=== PATIENT | female | born 1985 | race Caucasian/White ===

== ENCOUNTER 2019-07-04 03:25 | Observation (INO) | payer BC ==
[2019-07-04 04:27] LABS: ABSOLUTE BASOPHILS # (AUTO) 0.1 10^3/uL (0.0-0.2); ABSOLUTE EOSINOPHILS # (AUTO) 0.1 10^3/uL (0.0-0.6); ABSOLUTE LYMPHOCYTES (AUTO) 2.7 10^3/uL (0.5-4.7); ABSOLUTE MONOCYTES (AUTO) 0.9 10^3/uL (0.1-1.4); ABSOLUTE NEUT (AUTO) 9.4 10^3/uL (1.7-8.2); BASOPHILS % (AUTO) 0.6 % (0-2); HEMATOCRIT 37.8 % (36.0-47.0); HEMOGLOBIN 12.7 g/dL (12.0-15.5); LYMPHOCYTES % (AUTO) 20.4 % (13-45); MEAN CORPUSCULAR HGB CONC 33.5 g/dL (32.0-36.0); MEAN CORPUSCULAR VOLUME 87 fl (80-97); PLATELET COUNT 298 10^3/uL (150-450); RED BLOOD COUNT 4.37 10^6/uL (3.72-5.28); RED CELL DISTRIBUTION WIDTH 13.8 % (11.5-14.0); TOTAL CELLS COUNTED % (AUTO) 100 %; WHITE BLOOD COUNT 13.2 10^3/uL (4.0-10.5)
[2019-07-04] MEDS ORDERED: MORPHINE SULFATE 10 MG/ML INJ IV ONE ×2 (04:37→07:07)
[2019-07-04] MEDS ORDERED: ONDANSETRON HCL INJ/PF 4 MG/2 ML SDV IV ONE (04:37)
--- NOTE | 2019-07-04 04:42 | ER Document Report ---
ED General - Related Data Home Medications: vitamins aspirin 81 mg daily <AMY DARBY - Last Filed: 07/04/19 05:56> <ARTURO DELEON - Last Filed: 07/04/19 09:21> - General Chief Complaint: Vaginal Bleeding Stated Complaint: VAGINAL BLEEDING Time Seen by Provider: 07/04/19 04:32 - HPI Notes: Patient is a G3, P2 female at approximately 12 weeks gestation who presents to the emergency department for evaluation of vaginal bleeding. She states she started having cramping yesterday. About 2 AM she started having vaginal bleeding. She states she is gone through a pad every 30 minutes or so. She is cramping that she rates a 4 out of 5. No fevers or chills. No nausea or vomiting. Taking her medications as prescribed. (ALYSONUCHEAMY) - Related Data Allergies/Adverse Reactions: Latex, Natural Rubber Allergy (Verified 07/04/19 05:11) Past Medical History - General Information source: Patient Last Menstrual Period: 04/10/20 - Social History Smoking Status: Never Smoker Family History: Reviewed & Not Pertinent Patient has suicidal ideation: No Patient has homicidal ideation: No Neurological Medical History: Reports: Other - TIA Past Surgical History: Reports: Hx Section - 2017 <AMY DARBY - Last Filed: 07/04/19 05:56> Review of Systems - Review of Systems Constitutional: No symptoms reported EENT: No symptoms reported Cardiovascular: No symptoms reported Respiratory: No symptoms reported Gastrointestinal: No symptoms reported Genitourinary: No symptoms reported Female Genitourinary: See HPI Musculoskeletal: No symptoms reported Skin: No symptoms reported Neurological/Psychological: No symptoms reported <ALYSONUCHEAMY Eli - Last Filed: 07/04/19 05:56> Physical Exam <WILNERAMY Eli - Last Filed: 07/04/19 05:56> - Vital signs Vitals: Temp Pulse Resp BP Pulse Ox 97.9 F 90 17 125/76 98 07/04/19 03:39 07/04/19 03:39 07/04/19 03:39 07/04/19 03:39 07/04/19 03:39 - Notes Notes: Vital signs reviewed, please refer to chart. Head is normocephalic, atraumatic. Pupils equal round, reactive to light. Neck is supple without meningismus. Heart is regular rate and rhythm. Lungs are clear to auscultation bilaterally. Abdomen is soft, nontender, normoactive bowel sounds throughout. Extremities without cyanosis, clubbing. Posterior calves are nontender. Peripheral pulses are equal. Skin is warm and dry. Pelvic exam performed with JAZMINE Hoff, bpm architect present. Normal external genitalia. Moderate to heavy vaginal bleeding. I did suction heavy clots in over 100 cc of blood from the vagina. I am unable to fully visualize the cervix at this time, but heavy bleeding continues. (AMY DARBY) Course - Laboratory Result Diagrams: 07/04/19 04:14 <AMY DARBY - Last Filed: 07/04/19 05:56> - Laboratory Result Diagrams: 07/04/19 04:14 <ARTURO DELEON - Last Filed: 07/04/19 09:21> - Re-evaluation Re-evalutation: 07/04/19 05:57 Patient presents emergency department for evaluation. She had heavy vaginal bleeding. I did not have a strong suspicion that this is a complete miscarriage. Ultrasound is pending. 100 cc of bright red blood was suctioned from the vagina. I am concerned this patient will require D&C. Ultrasound pending. VIAL GAUGER will be consulted. (AMY DARBY) 07/04/19 06:44 Vaginal ultrasound shows no signs of intrauterine . Upon further discussion with the patient she states that she had a formal ultrasound at 7 weeks at [facility] and was found to have intrauterine with heart tones present. With this history, she is having a miscarriage at this time. Her pain is subsided but she continues to have mild vaginal bleeding. Discussed with DOWEL INSPECTOR when they come on at 8 AM 07/04/19 08:[address] May. Patient is found to have a dip in her blood pressures 80s over 70s but is alert oriented. Type and screen has been performed. Patient will be seen by Dr. May in the ED. Repeat blood pressure after liter fluid patient 102/74 (ARTURO DELEON) - Vital Signs Vital signs: Temp Pulse Resp BP Pulse Ox 98.1 F 75 18 102/74 99 07/04/19 05:13 07/04/19 05:13 07/04/19 05:13 07/04/19 06:54 07/04/19 05:13 - Laboratory Laboratory results interpreted by me: 07/04/19 07/04/19 07/04/19 04:14 04:14 08:16 WBC 13.2 H Absolute Neuts (auto) 9.4 H Beta HCG, Quant 1969.40 H Urine Protein 100 H Urine Ketones 100 H Urine Blood LARGE H Urine Bilirubin SMALL H Urine Urobilinogen 2.0 H Ur Leukocyte Esterase TRACE H Discharge <AMY DARBY - Last Filed: 07/04/19 05:56> - Discharge Admitting Provider: Essie Unit Admitted: Post <ARTURO DELEON - Last Filed: 07/04/19 09:21> - Discharge Clinical Impression: Miscarriage Condition: Stable Disposition: ADMITTED OBSERVATION
--- NOTE | 2019-07-04 06:30 | RADIOLOGY REPORT (SQ) ---
EXAM DESCRIPTION: US TRANSVAGINAL COMPLETED DATE/TME: 07/04/2019 04:38 CLINICAL HISTORY: 34 years, Female, 12 WGA, bleeding COMPARISON: None. TECHNIQUE: Emergent ultrasound LIMITATIONS: None. FINDINGS: The uterus measures 9.2 x 6.2 cm. There is no visible intrauterine gestational sac. The myometrium is somewhat heterogeneous. Endometrium is poorly defined measuring approximately 1.4 cm in thickness. The right ovary measures 2.9 x 1.8 x 2.3 cm. Left ovary is not well seen likely due to its position in the pelvis. No discrete adnexal cyst or mass. Trace of free fluid. Normal flow to the right ovary. IMPRESSION: There is no intrauterine gestational sac. Correlate with beta hCG levels. Ectopic cannot be excluded based on this exam. No discrete adnexal mass. The left ovary is not well seen copyright 2011 [employer]- All Rights Reserved
[2019-07-04] MEDS ORDERED: RINGERS SOLUTION,LACTATED 1,000 ML IV PRN (07:14)
[2019-07-04 08:49] LABS: APPEARANCE,URINE CLOUDY; BILIRUBIN,URINE SMALL (NEGATIVE); GLUCOSE, URINE NEGATIVE (NEGATIVE); KETONES,URINE 100 mg/dL (NEGATIVE); LEUKOCYTE ESTERASE,URINE TRACE (NEGATIVE); NITRITE,URINE NEGATIVE (NEGATIVE); PROTEIN,URINE 100 mg/dL (NEGATIVE)
[2019-07-04 08:54] LABS: COLOR,URINE RED; URINE SPECIFIC GRAVITY 1.027
[2019-07-04 09:46] LABS: ABSOLUTE BASOPHILS # (AUTO) 0.1 10^3/uL (0.0-0.2); ABSOLUTE LYMPHOCYTES (AUTO) 1.6 10^3/uL (0.5-4.7); ABSOLUTE MONOCYTES (AUTO) 0.5 10^3/uL (0.1-1.4); ABSOLUTE NEUT (AUTO) 12.3 10^3/uL (1.7-8.2); BASOPHILS % (AUTO) 0.6 % (0-2); EOSINOPHILS % (AUTO) 0.1 % (0-6); HEMATOCRIT 30.8 % (36.0-47.0); LYMPHOCYTES % (AUTO) 10.8 % (13-45); MEAN CORPUSCULAR HEMOGLOBIN 28.9 pg (27.0-33.4); MEAN CORPUSCULAR HGB CONC 33.4 g/dL (32.0-36.0); MEAN CORPUSCULAR VOLUME 87 fl (80-97); MONOCYTES % (AUTO) 3.6 % (3-13); PLATELET COUNT 239 10^3/uL (150-450); RED BLOOD COUNT 3.56 10^6/uL (3.72-5.28); RED CELL DISTRIBUTION WIDTH 13.7 % (11.5-14.0); SEGMENTED NEUTROPHILS % (AUTO) 84.9 % (42-78); TOTAL CELLS COUNTED % (AUTO) 100 %; WHITE BLOOD COUNT 14.5 10^3/uL (4.0-10.5)
[2019-07-04 09:52] LABS: HEMOGLOBIN 10.3 g/dL (12.0-15.5)
[2019-07-04] MEDS ORDERED: OXYCODONE-ACETAMINOPHEN 5-325 MG TABLET PO PRN ×2 (10:08)
[2019-07-04] MEDS ORDERED: DEXTROSE 50%-WATER 25 GM/50 ML DISP.SYRIN IV PRN ×2 (10:09)
[2019-07-04] MEDS ORDERED: GLUCAGON,HUMAN RECOMB 1 MG INJ SUBCUT PRN (10:09)
[2019-07-04] MEDS ORDERED: DEXTROSE 40% GEL 15 GM TUBE PO PRN ×2 (10:09)
--- NOTE | 2019-07-04 10:11 | PDOC H&P ---
History of Present Illness Admission Date/PCP: 07/04/19 09:40 Patient complains of: vaginal bleeding in History of Present Illness: GIULIANO BERNSTEIN is a 34 year old female presenting to the ER with vaginal bleeing and cramping in that began at 0130 this am. She reports changing a pad q 10 minutes for the first hour. She is 12+3ega by dates. JAME 01/13/2020. She reports dizzy when standing and BP decreased intermittently on review of vital signs. Past Medical History LMP: 04/10/20 Gynecological Infection: No 1 Baby 1 Female Year: Weight: 3.43 kg Delivery: : Low Cervical, Transverse 2 Spontaneous Year: Delivery: Other - cytotec Neurological Medical History: Reports: Other - TIA Past Surgical History Past Surgical History: Reports: Section - 2017 Social History Information Source: Patient Lives with: Family Smoking Status: Never Smoker Electronic Cigarette use?: No Frequency of Alcohol Use: None Hx Recreational Drug Use: No Drugs: None Hx Prescription Drug Abuse: No - Advance Directive Resuscitation Status: Full Code Family History Family History: Reviewed & Not Pertinent Parental Family History Reviewed: No Children Family History Reviewed: NA Sibling(s) Family History Reviewed.: NA Medication/Allergy Home Medications: Aspirin [Ecotrin 81 mg EC Tablet] 81 mg PO QHS 07/04/19 Vit/Dha [ Multi + Dha Capsule] 1 cap PO QHS 07/04/19 Allergies/Adverse Reactions: Latex, Natural Rubber Allergy (Verified 07/04/19 05:11) Review of Systems Constitutional: ABSENT: chills, fever(s), headache(s), weight gain, weight loss Respiratory: ABSENT: cough, hemoptysis Gastrointestinal: ABSENT: abdominal pain, constipation, diarrhea, hematemesis, hematochezia, nausea, vomiting Integumentary: ABSENT: rash, wounds Neurological: ABSENT: abnormal gait, abnormal speech, confusion, dizziness, focal weakness, syncope Psychiatric: ABSENT: anxiety, depression, homidical ideation, suicidal ideation Hematologic/Lymphatic: ABSENT: easy bleeding, easy bruising Physical Exam - Physical Exam Vital Signs: Temp Pulse Resp BP Pulse Ox 98.3 F 75 15 96/61 L 99 07/04/19 09:57 07/04/19 05:13 07/04/19 09:57 07/04/19 09:01 07/04/19 05:13 Intake & Output 07/03/19 07/04/19 07/05/19 06:59 06:59 06:59 Intake Total 1300 Balance 1300 Weight 79.379 kg General appearance: PRESENT: no acute distress, well-developed, well-nourished Head exam: PRESENT: atraumatic, normocephalic Respiratory exam: PRESENT: clear to auscultation stanislav, symmetrical, unlabored Cardiovascular exam: PRESENT: RRR. ABSENT: diastolic murmur, rubs, systolic murmur Pulses: PRESENT: normal dorsalis pedis pul, +2 pedal pulses bilateral Vascular exam: PRESENT: normal capillary refill GI/Abdominal exam: PRESENT: normal bowel sounds, soft. ABSENT: distended, guarding, mass, organolmegaly, rebound, tenderness Rectal exam: PRESENT: deferred Gentrourinary exam: PRESENT: other - 3-4cm clot and organized clot versus placenta and membranes removed from vault and cervix. Bleeding immediately improved. Extremities exam: PRESENT: full ROM. ABSENT: calf tenderness, clubbing, pedal edema Musculoskeletal exam: PRESENT: ambulatory Neurological exam: PRESENT: alert Psychiatric exam: PRESENT: appropriate affect, normal mood. ABSENT: homicidal ideation, suicidal ideation Result Laboratory Results: 07/04/19 09:33 07/04/19 07/04/19 07/04/19 04:14 04:14 07:40 WBC 13.2 H RBC 4.37 Hgb 12.7 Hct 37.8 MCV 87 MCH 29.0 MCHC 33.5 RDW 13.8 Plt Count 298 Seg Neutrophils % 71.0 Urine Color Urine Appearance Urine pH Ur Specific [place] Urine Protein Urine Glucose (UA) Urine Ketones Urine Blood Urine Nitrite Ur Leukocyte Esterase Urine WBC (Auto) Urine RBC (Auto) Blood Type AB NEGATIVE AB NEGATIVE Antibody Screen NEGATIVE NEGATIVE 07/04/19 07/04/19 08:16 09:33 WBC 14.5 H RBC 3.56 L Hgb 10.3 L D Hct 30.8 L MCV 87 MCH 28.9 MCHC 33.4 RDW 13.7 Plt Count 239 Seg Neutrophils % 84.9 H Urine Color RED Urine Appearance CLOUDY Urine pH 6.0 Ur Specific [place] 1.027 Urine Protein 100 H Urine Glucose (UA) NEGATIVE Urine Ketones 100 H Urine Blood LARGE H Urine Nitrite NEGATIVE Ur Leukocyte Esterase TRACE H Urine WBC (Auto) 39 Urine RBC (Auto) >182 Blood Type Antibody Screen Impressions: Obstetrics Ultrasound 07/04/19 04:38 IMPRESSION: There is no intrauterine gestational sac. Correlate with beta hCG levels. Ectopic cannot be excluded based on this exam. No discrete adnexal mass. The left ovary is not well seen copyright 2011 [employer]- All Rights Reserved Status: Imported from PACS Assessment & Plan - Diagnosis (1) Anemia due to acute blood loss Is this a current diagnosis for this admission?: Yes Plan: admit to floor and monitor bleeding. may need transfusion. Need orthostatic vital signs. (2) Miscarriage Is this a current diagnosis for this admission?: Yes Plan: unfortunately US notes no IUP any longer but significant POC noted on US at 0400. WIll get US this pm and eval for contiued POC now that significant prod ucts removed from os - Time Time Spent: 30 to 50 Minutes Medications reviewed and adjusted accordingly: Yes Anticipated discharge: Home Within: within 24 hours - Inpatient Certification Based on my medical assessment, after consideration of the patient's com orbidities, presenting symptoms, or acuity I expect that the services needed warrant INPATIENT care.: Yes I certify that my determination is in accordance with my understanding of Medicare's requirements for reasonable and necessary INPATIENT services [42 CFR 412.3e].: Yes Medical Necessity: Need Close Monitoring Due to Risk of Patient Decompensation, Need For IV Fluids - Plan Summary Plan Summary: observe for need for transfusion
[2019-07-04] MEDS ORDERED: RINGERS SOLUTION,LACTATED 1,000 ML IV ONE (11:00)
[2019-07-04] MEDS ORDERED: DOXYCYCLINE HYCLATE 100 MG TABLET PO SCH (11:00)
[2019-07-04 13:31] LABS: CHLAM PCR NOT DETECTED (NOT DETECT)
[2019-07-04] MEDS: DOXYCYCLINE HYCLATE 100 MG TABLET PO SCH ×2 (14:09→21:44)
[2019-07-04] MEDS: RINGERS SOLUTION,LACTATED 1,000 ML IV PRN (14:11)
[2019-07-04 16:34] LABS: ABSOLUTE EOSINOPHILS # (AUTO) 0.1 10^3/uL (0.0-0.6); ABSOLUTE LYMPHOCYTES (AUTO) 3.2 10^3/uL (0.5-4.7); ABSOLUTE MONOCYTES (AUTO) 0.7 10^3/uL (0.1-1.4); ABSOLUTE NEUT (AUTO) 7.1 10^3/uL (1.7-8.2); BASOPHILS % (AUTO) 0.4 % (0-2); EOSINOPHILS % (AUTO) 0.7 % (0-6); HEMATOCRIT 27.4 % (36.0-47.0); HEMOGLOBIN 9.2 g/dL (12.0-15.5); LYMPHOCYTES % (AUTO) 29.1 % (13-45); MEAN CORPUSCULAR HEMOGLOBIN 28.9 pg (27.0-33.4); MEAN CORPUSCULAR HGB CONC 33.7 g/dL (32.0-36.0); MEAN CORPUSCULAR VOLUME 86 fl (80-97); MONOCYTES % (AUTO) 6.1 % (3-13); PLATELET COUNT 229 10^3/uL (150-450); RED BLOOD COUNT 3.19 10^6/uL (3.72-5.28); RED CELL DISTRIBUTION WIDTH 14.2 % (11.5-14.0); SEGMENTED NEUTROPHILS % (AUTO) 63.7 % (42-78); TOTAL CELLS COUNTED % (AUTO) 100 %; WHITE BLOOD COUNT 11.1 10^3/uL (4.0-10.5)
--- NOTE | 2019-07-04 20:17 | RADIOLOGY REPORT (SQ) ---
EXAM DESCRIPTION: US PELVIS TRANSVAGINAL COMPLETED DATE/TME: 07/04/2019 16:00 CLINICAL HISTORY: 34 years, Female, Recheck for possible retained placenta. Findings: Uterus is retroverted and measures 8.5 x 6.7 x 5.9 cm. Endometrium measures 1 cm in thickness. Cervix is closed. There is mild heterogeneous hypoechoic region noted within the endometrial canal, ill-defined. Right ovary measures 1.9 x 1.6 x 1.4 cm. Left ovary measures 2.8 x 1.8 x 1.7 cm. No adnexal masses. Vascular flow preserved within both ovaries on color and spectral Doppler imaging. IMPRESSION: Mild heterogeneous probable blood clots versus retained products of conception in the lower uterine and endocervical canal. No free fluid.
[2019-07-04] MEDS ORDERED: ACETAMINOPHEN 325 MG TABLET PO PRN (21:20)
[2019-07-04] MEDS ORDERED: ACETAMINOPHEN 325 MG TABLET PO ONE (22:00)
[2019-07-05] MEDS ORDERED: NORMAL SALINE 250 ML IV PRN (00:02)
[2019-07-05] MEDS: RINGERS SOLUTION,LACTATED 1,000 ML IV PRN (00:11)
[2019-07-05 08:42] LABS: ABSOLUTE EOSINOPHILS # (AUTO) 0.1 10^3/uL (0.0-0.6); ABSOLUTE LYMPHOCYTES (AUTO) 2.9 10^3/uL (0.5-4.7); ABSOLUTE MONOCYTES (AUTO) 0.5 10^3/uL (0.1-1.4); ABSOLUTE NEUT (AUTO) 4.4 10^3/uL (1.7-8.2); BASOPHILS % (AUTO) 0.6 % (0-2); EOSINOPHILS % (AUTO) 1.6 % (0-6); HEMOGLOBIN 10.9 g/dL (12.0-15.5); LYMPHOCYTES % (AUTO) 36.5 % (13-45); MEAN CORPUSCULAR HEMOGLOBIN 29.6 pg (27.0-33.4); MEAN CORPUSCULAR HGB CONC 34.1 g/dL (32.0-36.0); MEAN CORPUSCULAR VOLUME 87 fl (80-97); MONOCYTES % (AUTO) 6.4 % (3-13); PLATELET COUNT 201 10^3/uL (150-450); RED BLOOD COUNT 3.68 10^6/uL (3.72-5.28); RED CELL DISTRIBUTION WIDTH 14.2 % (11.5-14.0); SEGMENTED NEUTROPHILS % (AUTO) 54.9 % (42-78); TOTAL CELLS COUNTED % (AUTO) 100 %
[2019-07-05] MEDS: DOXYCYCLINE HYCLATE 100 MG TABLET PO SCH (09:42)
--- NOTE | 2019-07-05 11:36 | PDOC PROGRESS REPORT ---
Subjective Progress Note for:: 07/05/19 Subjective:: Doing much better today. She denies pain today. No cramping. Vaginal bleeding is light this am. She denies fever /chills. Voiding without incidence TOlerated PO this am. She feels tired but otherwise mood is good. Reason For Visit: INCOMPLETE AB,BLEEDING,ANEMIA Physical Exam - Physical Exam Vital Signs: Temp Pulse Resp BP Pulse Ox 98.1 F 56 L 16 105/59 L 98 07/05/19 06:57 07/05/19 06:57 07/05/19 06:57 07/05/19 06:57 07/05/19 06:57 Intake & Output 07/04/19 07/05/19 07/06/19 06:59 06:59 06:59 Intake Total 2660 Balance 2660 Weight 79.379 kg 78 kg General appearance: PRESENT: no acute distress, cooperative GI/Abdominal exam: PRESENT: normal bowel sounds - NOn tender, soft Psychiatric exam: PRESENT: appropriate affect Skin exam: PRESENT: dry, normal color, warm Result Laboratory Results: 07/05/19 08:32 07/04/19 07/04/19 07/05/19 07:40 16:28 08:32 WBC 11.1 H 8.0 RBC 3.19 L 3.68 L Hgb 9.2 L 10.9 L Hct 27.4 L 32.0 L MCV 86 87 MCH 28.9 29.6 MCHC 33.7 34.1 RDW 14.2 H 14.2 H Plt Count 229 201 Seg Neutrophils % 63.7 54.9 Blood Type AB NEGATIVE Antibody Screen NEGATIVE Impressions: Obstetrics Ultrasound 07/04/19 04:38 IMPRESSION: There is no intrauterine gestational sac. Correlate with beta hCG levels. Ectopic cannot be excluded based on this exam. No discrete adnexal mass. The left ovary is not well seen copyright 2011 [employer]- All Rights Reserved Transvaginal US 07/04/19 16:00 IMPRESSION: Mild heterogeneous probable blood clots versus retained products of conception in the lower uterine and endocervical canal. No free fluid. Assessment & Plan - Diagnosis (1) Anemia due to acute blood loss Is this a current diagnosis for this admission?: Yes Plan: Bleeding light this am Hgb increased > 10 today. No dizziness or light headed with ambulation (2) Miscarriage Is this a current diagnosis for this admission?: Yes Plan: s/p extraction of tissue/clot in vaginal vault/cervix. Pain has improved-none this am NO further tissue/clots. Light bleeding this am Continue Doxycycline PO Discussed plan of care and possible discharge later today - Time Time Spent with patient: Less than 15 minutes Medications reviewed and adjusted accordingly: Yes Anticipated discharge: Home Within: within 24 hours
--- NOTE | 2019-07-05 15:28 | Discharge Summary ---
Discharge Summary (SDC) - Discharge Final Diagnosis: Stable after spontaneous miscarriage with products of conception with in cervix and vagina on arrival to ED> She had significant blood loss and required transfusion. Hgb stable this am. VSS and patient improved condition. Discharge Date: 07/05/19 Condition: Stable Treatment or Instructions: Follow up in office in 1 week for US and HCG with visit Prescriptions: Ferrous Sulfate [Ferosul] 325 mg PO DAILY #30 tablet Ibuprofen [Ibu] 800 mg PO Q8 #30 tablet Doxycycline Hyclate [Vibramycin 100 mg Tablet] 100 mg PO Q12 6 Days #12 tablet Discharge Activity: Activity As Tolerated Report the Following to Your Physician Immediately: Shortness of Breath, Nausea, Vomiting, Increase in Pain, Fever over 101 Degrees, Redness, Warmth, Drainage- Foul Smelling, Increased Vaginal Bleed, Visual Disturbance, IV Site Infection Signs
[2019-07-05 15:39] VITALS: BP 102/61
== END 2019-07-05 17:23 | disposition home or self-care (01) ==
LOC: ER 03:25 → EH 09:40 → 2N 10:15
PROVIDERS: ADMIT Student in an Organized Health Care Education/Training Program; ATTEND Student in an Organized Health Care Education/Training Program
DX: O03.1 Delayed or excessive hemorrhage following incomplete spontaneous abortion (principal); D62 Acute posthemorrhagic anemia; Z67.31 Type AB blood, Rh negative; Z87.59 Personal history of other complications of pregnancy, childbirth and the puerperium; Z86.73 Personal history of transient ischemic attack (TIA), and cerebral infarction without residual deficits; Z79.82 Long term (current) use of aspirin
CPT/HCPCS: 96376; 99285; 96361; 96374; 96375; 86900; 86901; 36415 ×2; 36430; 86850; 84702 ×2; 85025 ×2; 81001; 86920; 87491; 87591; 88305 ×2; 76817; 76830; G0378 ×2; P9016; J2790; J2270; J2405; J7120 ×2